=== PATIENT | female | born 1970 | race Caucasian/White ===

== ENCOUNTER 2017-10-16 06:30 | Emergency (ER) | payer OTHER, MEDICARE ==
[~2017-10-16] VITALS: Ht 172.7 cm; Wt 70.0 kg
[~2017-10-16 06:30] MED LIST: BACL20TA PO; CITA10TA8 PO; DIAZ10TA PO; FAMO-79 PO; FLUD0.1T PO; GABA300C10 PO; HYDR-3307 PO; LEVO25TA2 PO; MAGN400T26 PO; MODA200T27 PO; OXYC-302 PO; OXYC1TAB7 PO; PARO40TA61 PO; PRED20TA PO; QUET50TA8 PO; RISP1TAB45 PO; SERT100T5 PO
[2017-10-16] MEDS ORDERED: ACETAMINOPHEN 500 MG TABLET ONE (06:55)
[2017-10-16] MEDS ORDERED: KETOROLAC 30 MG/1 ML ONE (06:55)
[2017-10-16] MEDS ORDERED: KETOROLAC 60 MG/2 ML IVPush ONE (07:00)
[2017-10-16] MEDS ORDERED: SODIUM CHLORIDE 0.9% 1,000ML IVBOLUS ONE ×2 (07:00→08:30)
[2017-10-16] MEDS ORDERED: ACETAMINOPHEN 500 MG TABLET PO ONE (07:00)
[2017-10-16] MEDS ORDERED: ONDANSETRON 2MG/ML, 2ML ONE (07:09)
[2017-10-16 07:11] LABS: BASOPHILS # (AUTO) 0.02 x10^3/uL (0-0.1); BASOPHILS % (AUTO) 0 % (0-1); EOSINOPHILS # (AUTO) 0.05 x10^3/uL (0-0.4); EOSINOPHILS % (AUTO) 0 % (1-7); LYMPHOCYTES % (AUTO) 3 % (22-44); MD NO; MEAN CORPUSCULAR HEMOGLOBIN 31.3 pg (27.0-34.8); MEAN CORPUSCULAR HGB CONC 33.2 g/dL (32.4-35.8); MEAN CORPUSCULAR VOLUME 94.4 fL (80-100); MEAN PLATELET VOLUME 9.4 fL (7.4-10.4); MONOCYTES # (AUTO) 0.45 x10^3/uL (0.2-0.8); MONOCYTES % (AUTO) 4 % (2-9); NEUTROPHILS # (AUTO) 11.32 x10^3/uL (1.8-6.8); NEUTROPHILS % (AUTO) 93 % (42-75); PLATELET COUNT 203 x10^3/uL (130-400); RED BLOOD COUNT 4.82 x10^6/uL (3.82-5.3); RED CELL DISTRIBUTION WIDTH 13.5 % (9.6-15.2)
[2017-10-16 07:23] LABS: ALANINE AMINOTRANSFERASE 24 U/L (12-78); ANION GAP 9 mmol/L (5-15); CALCIUM 8.6 mg/dL (8.5-10.1); CHLORIDE 106 mmol/L (98-107)
[2017-10-16 07:26] LABS: INTERNATIONAL NORMALIZED RATIO 0.98 (0.93-1.1); PROTHROMBIN TIME 10.2 Seconds (9.6-11.5)
[2017-10-16 07:31] LABS: MICROSCOPIC AUTO
[2017-10-16 07:33] LABS: ALKALINE PHOSPHATASE 93 U/L (45-117); BILIRUBIN,TOTAL 0.6 mg/dL (0.2-1.0); CREATININE 0.99 mg/dL (0.55-1.02); FREE T4 (FREE THYROXINE) 0.87 ng/dL (0.76-1.46); TOTAL PROTEIN 8.2 g/dL (6.4-8.2)
[2017-10-16] MEDS ORDERED: DIPHENHYDRAMINE 50 MG/ML, 1ML ONE (07:59)
[2017-10-16] MEDS ORDERED: ONDANSETRON 2MG/ML, 2ML IVPush ONE (08:00)
[2017-10-16] MEDS ORDERED: DIPHENHYDRAMINE 50 MG/ML, 1ML IVPush ONE (08:00)
[2017-10-16 08:04] LABS: CULTURE INDICATED? YES
[2017-10-16] MEDS ORDERED: METOCLOPRAMIDE 5 MG/ML, 2ML IVPush ONE (08:30)
[2017-10-16] MEDS ORDERED: CIPROFLOXACIN/PMX 400MG/200ML 200 ML IV ONE (08:30)
[2017-10-16] MEDS ORDERED: METOCLOPRAMIDE 5 MG/ML, 2ML ONE (08:38)
[2017-10-16] MEDS ORDERED: CIPROFLOXACIN/PMX 400MG/200ML 200 ML ONE (08:39)
[2017-10-16 09:50] VITALS: BP 86/47
== END 2017-10-16 10:08 | disposition home or self-care (01) ==
LOC: ED 08:50
DX: N10 Acute pyelonephritis (principal); Z90.49 Acquired absence of other specified parts of digestive tract; Z95.0 Presence of cardiac pacemaker
CPT/HCPCS: 36415; 71045; 80053; 81001; 83605; 84145; 84439; 84443; 85025; 85610; 87040; 87077; 87086; 87186; 93005; 96365; 96375; 99285; J0744; J1200; J1885; J2405; J2765; J7030

== ENCOUNTER 2017-10-18 07:59 | Emergency (ER) | payer OTHER, MEDICARE ==
[~2017-10-18] VITALS: Ht 172.7 cm; Wt 67.5 kg
[2017-10-18] MEDS ORDERED: FENTANYL PF 100 MCG/2ML ONE ×2 (08:41→09:31)
[2017-10-18 08:52] LABS: MICROSCOPIC NOT IND
[2017-10-18 08:56] LABS: CULTURE INDICATED? NO
[2017-10-18 08:58] LABS: BASOPHILS # (AUTO) 0.02 x10^3/uL (0-0.1); BASOPHILS % (AUTO) 0 % (0-1); EOSINOPHILS # (AUTO) 0.14 x10^3/uL (0-0.4); EOSINOPHILS % (AUTO) 1 % (1-7); LYMPHOCYTES # (AUTO) 1.02 x10^3/uL (1-3.4); LYMPHOCYTES % (AUTO) 10 % (22-44); MD NO; MEAN CORPUSCULAR HEMOGLOBIN 31.4 pg (27.0-34.8); MEAN CORPUSCULAR HGB CONC 33.3 g/dL (32.4-35.8); MEAN CORPUSCULAR VOLUME 94.3 fL (80-100); MEAN PLATELET VOLUME 9.1 fL (7.4-10.4); MONOCYTES # (AUTO) 1.11 x10^3/uL (0.2-0.8); MONOCYTES % (AUTO) 11 % (2-9); NEUTROPHILS # (AUTO) 7.92 x10^3/uL (1.8-6.8); NEUTROPHILS % (AUTO) 78 % (42-75); PLATELET COUNT 189 x10^3/uL (130-400); RED BLOOD COUNT 4.34 x10^6/uL (3.82-5.3); RED CELL DISTRIBUTION WIDTH 13.4 % (9.6-15.2)
[2017-10-18] MEDS ORDERED: FENTANYL PF 100 MCG/2ML IVPush PRN ×2 (09:00→10:00)
[2017-10-18 09:09] LABS: ALANINE AMINOTRANSFERASE 18 U/L (12-78); ALBUMIN 3.4 g/dL (3.4-5.0); ANION GAP 8 mmol/L (5-15); CALCIUM 9.2 mg/dL (8.5-10.1); CHLORIDE 108 mmol/L (98-107)
[2017-10-18 09:12] LABS: ALKALINE PHOSPHATASE 68 U/L (45-117); BILIRUBIN,TOTAL 0.3 mg/dL (0.2-1.0); CREATININE 0.87 mg/dL (0.55-1.02); TOTAL PROTEIN 7.4 g/dL (6.4-8.2)
[2017-10-18 10:26] VITALS: BP 100/74
[2017-10-18] MEDS ORDERED: KETOROLAC 30 MG/1 ML ONE (10:29)
[2017-10-18] MEDS ORDERED: KETOROLAC 30 MG/1 ML IVPush ONE (10:30)
== END 2017-10-18 10:49 | disposition home or self-care (01) ==
LOC: ED 09:41
DX: N12 Tubulo-interstitial nephritis, not specified as acute or chronic (principal); N39.0 Urinary tract infection, site not specified; Z90.89 Acquired absence of other organs; Z90.710 Acquired absence of both cervix and uterus; Z95.0 Presence of cardiac pacemaker
CPT/HCPCS: 36415; 71045; 74176; 80053; 81003; 83605; 85025; 87040; 96374; 96375; 96376; 99285; J1885; J3010

== ENCOUNTER 2019-04-08 12:14 | Emergency (ER) | payer OTHER ==
[~2019-04-08] VITALS: Ht 175.3 cm; Wt 72.4 kg
[~2019-04-08 12:14] MED LIST changes: +FLUC150T2 PO; -HYDR-3307 PO; +HYDR-36 PO; +LEVO750T6 PO; -QUET50TA8 PO; +QUET50TA9 PO; +SERT100T32 PO; -SERT100T5 PO
[2019-04-08] MEDS ORDERED: LEVO50TA5 PO (12:43)
[2019-04-08] MEDS ORDERED: ALBU90AE INH (12:43)
--- NOTE | 2019-04-08 12:43 | NUR ---
PT CAME IN [place] LEFT BREAST ENLARGEMENT AND THAT SHE NOTICED "2 LUMPS" IN BREAST. FIRST NOTICED THIS ABOUT 3 MONTHS AGO. BUT YESTERDAY THE BREAST GOT REALLY LARGE AND TENDER.
[2019-04-08 12:46] VITALS: BP 123/89
== END 2019-04-08 13:18 | disposition home or self-care (01) ==
LOC: ED 13:00
DX: N64.4 Mastodynia (principal); F17.200 Nicotine dependence, unspecified, uncomplicated; Z95.0 Presence of cardiac pacemaker; Z90.89 Acquired absence of other organs; Z90.710 Acquired absence of both cervix and uterus
CPT/HCPCS: 99281

== ENCOUNTER 2019-05-08 10:00 | Observation (INO) | payer OTHER, MEDICARE ==
[~2019-05-08] VITALS: Ht 175.3 cm; Wt 71.5 kg
[~2019-05-08 10:00] MED LIST changes: +ALBU90AE INH; +LEVO50TA5 PO
--- NOTE | 2019-05-08 10:16 | NUR ---
PT ARRIVED BY EMS WITH C/O OF NECK, PAIN AND LEFT ARM PAIN. PT REPORTS THAT SHE ORGINALLY THOUGHT IT WAS AN EAR INFECTION TO THE LEFT EAR D/T PAIN IN LEFT EAR. PT REPORTS CHRONIC LEFT EAR INFECTION. PT REPORTS OF RELIEF OF PAIN WITH ADMINISTRATION OF NITRO. PT CHANGED INTO HOSPITAL GOWN, CONNECTED TO ALL MONITORS. BED RAILS UP AND CALL LIGHT WITHIN REACH.
[2019-05-08] MEDS ORDERED: NALT1TAB PO (10:25)
--- NOTE | 2019-05-08 10:46 | NUR ---
PROVIDER AT BEDSIDE.
--- NOTE | 2019-05-08 11:35 | NUR ---
pt c/o sudden return of left arm and neck pain. Discussed with MD and order obtained to repeat EKG
[2019-05-08 11:52] LABS: ANION GAP 8 mmol/L (5-15); CALCIUM 9.1 mg/dL (8.5-10.1); CHLORIDE 111 mmol/L (98-107); CREATININE 0.85 mg/dL (0.55-1.02)
[2019-05-08] MEDS ORDERED: KETOROLAC 30 MG/1 ML ONE (11:52)
[2019-05-08 11:56] LABS: TROPONIN I < 0.015 ng/mL (0.000-0.045)
[2019-05-08] MEDS ORDERED: KETOROLAC 30 MG/1 ML IVPush ONE (12:00)
[2019-05-08 12:07] LABS: BASOPHILS # (AUTO) 0.06 x10^3/uL (0-0.1); BASOPHILS % (AUTO) 1 % (0-1); EOSINOPHILS # (AUTO) 0.21 x10^3/uL (0-0.4); EOSINOPHILS % (AUTO) 4 % (1-7); LYMPHOCYTES # (AUTO) 1.49 x10^3/uL (1-3.4); LYMPHOCYTES % (AUTO) 26 % (22-44); MD NO; MEAN CORPUSCULAR HEMOGLOBIN 31.1 pg (27.0-34.8); MEAN CORPUSCULAR HGB CONC 33.1 g/dL (32.4-35.8); MEAN CORPUSCULAR VOLUME 94.1 fL (80-100); MEAN PLATELET VOLUME 10.2 fL (7.4-10.4); MONOCYTES # (AUTO) 0.52 x10^3/uL (0.2-0.8); MONOCYTES % (AUTO) 9 % (2-9); NEUTROPHILS # (AUTO) 3.52 x10^3/uL (1.8-6.8); NEUTROPHILS % (AUTO) 61 % (42-75); PLATELET COUNT 176 x10^3/uL (130-400); RED BLOOD COUNT 4.89 x10^6/uL (3.82-5.3); RED CELL DISTRIBUTION WIDTH 13.4 % (9.6-15.2)
--- NOTE | 2019-05-08 12:15 | NUR ---
Pricilla trujillo in EDM - 05/08/19 at 1217 by EYAD Patient/Caregiver given discharge instructions and they have confirmed that they understand the instructions. Patient ambulatory with steady gait. pt verbalized that she will fill her perscripition as ordered.
[2019-05-08] MEDS ORDERED: NITROGLYCERIN SINGLE TAB 0.4 MG SL ONE ×2 (12:38→13:00)
--- NOTE | 2019-05-08 12:41 | NUR ---
MD AT BEDSIDE. PT CONTINUES TO HAVE PAIN, INCREASED FROM BEFORE DESPITE TORADOL. ORDER OBTAINED TO GIVE NITRO SL X1.
[2019-05-08] MEDS ORDERED: NITROGLYCERIN 0.4 MG BOTTLE (25 TABS) SL ONE (13:00)
[2019-05-08] MEDS ORDERED: NITROGLYCERIN OINT 2%, 1GM TP ONE ×2 (13:44→14:00)
--- NOTE | 2019-05-08 14:04 | NUR ---
Admitting MD at bedside.
[2019-05-08] MEDS ORDERED: NITROGLYCERIN SINGLE TAB 0.4 MG SL PRN (14:30)
[2019-05-08] MEDS ORDERED: morphine SULFATE 10 MG/ML, 1ML IVPush PRN (14:30)
--- NOTE | 2019-05-08 15:35 | NUR ---
Pt resting comfortably, slight JEROME but otherwise pain free. Pt hungry/thirsty, orders checked & meal tray ordered. NSR, VSS, tele hold for now, pt updated & aware of POC.
--- NOTE | 2019-05-08 15:52 | NUR ---
Report given to MELANIE Valle. Pt getting ECHO at this time & room still needs to be cleaned.
[2019-05-08] MEDS ORDERED: ACETAMINOPHEN 325 MG TABLET ONE (16:13)
[2019-05-08] MEDS: ACETAMINOPHEN 325 MG TABLET PO PRN ×2 (16:18→21:35)
--- NOTE | 2019-05-08 16:19 | NUR ---
Medicated as per emar for JEROME w/ tylenol. Waiting on clean tele bed then pt to be transported.
--- NOTE | 2019-05-08 16:52 | NUR ---
Meal tray delivered.
[2019-05-08 17:24] LABS: TROPONIN I < 0.015 ng/mL (0.000-0.045)
--- NOTE | 2019-05-08 17:45 | NUR ---
Delay in transport to floor due to lack of staffing. Pt now to tele via [employer] on monitor
[2019-05-08 18:07] VITALS: BP 122/78
[2019-05-08 18:13] VITALS: BP 122/78
[2019-05-08] MEDS: DIAZEPAM 5 MG TABLET PO SCH ×2 (18:35→21:00)
[2019-05-08] MEDS: BACLOFEN 10 MG TABLET PO SCH (18:36)
[2019-05-08] MEDS: ENOXAPARIN 40 MG/0.4 ML SQ SCH (18:36)
[2019-05-08 20:38] VITALS: BP 116/81
[2019-05-08] MEDS ORDERED: NITROGLYCERIN 0.4 MG/SPRAY SL PRN (21:30)
[2019-05-08] MEDS: NITROGLYCERIN 0.4 MG BOTTLE (25 TABS) SL PRN (21:48)
[2019-05-08 21:58] VITALS: BP 113/78
[2019-05-08 23:47] LABS: TROPONIN I < 0.015 ng/mL (0.000-0.045)
[2019-05-09] MEDS: BACLOFEN 10 MG TABLET PO SCH ×5 (00:05→21:18)
[2019-05-09 01:50] VITALS: BP 103/70
[2019-05-09 05:15] LABS: BASOPHILS # (AUTO) 0.07 x10^3/uL (0-0.1); BASOPHILS % (AUTO) 1 % (0-1); EOSINOPHILS # (AUTO) 0.54 x10^3/uL (0-0.4); EOSINOPHILS % (AUTO) 11 % (1-7); LYMPHOCYTES # (AUTO) 1.71 x10^3/uL (1-3.4); LYMPHOCYTES % (AUTO) 34 % (22-44); MD NO; MEAN CORPUSCULAR HEMOGLOBIN 31.3 pg (27.0-34.8); MEAN CORPUSCULAR HGB CONC 33.2 g/dL (32.4-35.8); MEAN CORPUSCULAR VOLUME 94.3 fL (80-100); MEAN PLATELET VOLUME 10.4 fL (7.4-10.4); MONOCYTES # (AUTO) 0.54 x10^3/uL (0.2-0.8); MONOCYTES % (AUTO) 11 % (2-9); NEUTROPHILS # (AUTO) 2.17 x10^3/uL (1.8-6.8); NEUTROPHILS % (AUTO) 43 % (42-75); PLATELET COUNT 164 x10^3/uL (130-400); RED BLOOD COUNT 4.49 x10^6/uL (3.82-5.3); RED CELL DISTRIBUTION WIDTH 13.4 % (9.6-15.2)
[2019-05-09 05:28] LABS: CHLORIDE 108 mmol/L (98-107)
[2019-05-09 05:35] LABS: ANION GAP 6 mmol/L (5-15); CALCIUM 9.1 mg/dL (8.5-10.1); CHOL/HDL RATIO 1.9; CHOLESTEROL, TOTAL 142 mg/dL (140-239); CREATININE 0.91 mg/dL (0.55-1.02); HDL CHOL % 53 % (28-40); HDL CHOLESTEROL (DIRECT) 75 mg/dL (40-60); LDL CHOLESTEROL,CALCULATED 49 mg/dL (54-169); LDL/HDL RATIO 0.7 (0.5-3.0); TRIGLYCERIDES 88 mg/dL (50-200); VLDL CHOLESTEROL 18 mg/dL (0-25)
[2019-05-09 08:12] VITALS: BP 119/83
[2019-05-09] MEDS: DIAZEPAM 5 MG TABLET PO SCH ×3 (08:15→21:17)
[2019-05-09] MEDS: LEVOTHYROXINE 50 MCG TABLET PO SCH (08:15)
[2019-05-09] MEDS: NITROGLYCERIN 0.4 MG BOTTLE (25 TABS) SL PRN (10:01)
[2019-05-09 10:03] VITALS: BP 126/79
[2019-05-09] MEDS ORDERED: VERAPAMIL 2.5 MG/ML, 2ML ONE (10:04)
[2019-05-09] MEDS ORDERED: MIDAZOLAM 1 MG/ML, 5ML ONE (10:04)
[2019-05-09] MEDS ORDERED: FENTANYL PF 250 MCG/5ML ONE (10:04)
[2019-05-09] MEDS ORDERED: HEPARIN 1,000 UNITS/ML, 10ML ONE (10:05)
[2019-05-09] MEDS ORDERED: BIVALIRUDIN 250 MG ONE (10:05)
[2019-05-09] MEDS ORDERED: LIDOCAINE 1%, 20ML ONE (10:05)
[2019-05-09 10:16] LABS: TROPONIN I < 0.015 ng/mL (0.000-0.045)
[2019-05-09] MEDS ORDERED: ASPIRIN 325 MG TABLET PO ONE (10:30)
[2019-05-09] MEDS ORDERED: DIPHENHYDRAMINE 50 MG/ML, 1ML ONE (10:37)
[2019-05-09] MEDS: SODIUM CHLORIDE 0.9% 1,000 ML IV SCH ×3 (11:12→23:13)
[2019-05-09] MEDS ORDERED: ISOSORBIDE MONONITRATE ER 30 MG TABLET ONE (11:15)
[2019-05-09] MEDS: ISOSORBIDE MONONITRATE ER 30 MG TABLET PO SCH (11:22)
[2019-05-09] MEDS ORDERED: ISOSORBIDE MONONITRATE ER 30 MG TABLET PO SCH (11:30)
[2019-05-09 14:15] VITALS: BP 101/67
[2019-05-09] MEDS: ACETAMINOPHEN 325 MG TABLET PO PRN (15:20)
[2019-05-09] MEDS ORDERED: SUMATRIPTAN 50 MG TABLET PO PRN (16:20)
[2019-05-09] MEDS: ENOXAPARIN 40 MG/0.4 ML SQ SCH (18:38)
[2019-05-09] MEDS ORDERED: ATORVASTATIN 40 MG TABLET PO SCH (21:00)
[2019-05-09 21:47] VITALS: BP 129/84
[2019-05-10 03:26] VITALS: BP 106/77
[2019-05-10] MEDS: SODIUM CHLORIDE 0.9% 1,000 ML IV SCH (05:57)
[2019-05-10] MEDS: BACLOFEN 10 MG TABLET PO SCH ×2 (05:57→11:00)
[2019-05-10 07:23] VITALS: BP 117/66
[2019-05-10] MEDS: DIAZEPAM 5 MG TABLET PO SCH (08:12)
[2019-05-10] MEDS: ISOSORBIDE MONONITRATE ER 30 MG TABLET PO SCH (08:13)
[2019-05-10] MEDS: LEVOTHYROXINE 50 MCG TABLET PO SCH (08:13)
[2019-05-10] MEDS ORDERED: ISOS30TA8 PO (09:20)
[2019-05-10] MEDS ORDERED: NITR0.4T41 SL (09:20)
[2019-05-10] MEDS ORDERED: BUTA1CAP30 PO (09:20)
[2019-05-10] MEDS ORDERED: METO25TA91 PO (09:20)
[2019-05-10] MEDS ORDERED: BUTALB/APAP/CAFFEINE 50MG/325MG/40MG PO PRN (10:00)
[2019-05-10] MEDS ORDERED: METOPROLOL SUCCINATE 25 MG TAB.ER.24H PO SCH (18:00)
== END 2019-05-10 11:12 | disposition home or self-care (01) ==
LOC: ED 12:58 → EDIP 14:14 → 5SO 17:49 → DCLOUNGE 05-10 10:52
PROVIDERS: ADMIT Internal Medicine Infectious Disease; ATTEND Hospitalist
DX: I20.0 Unstable angina (principal); R07.89 Other chest pain; M54.2 Cervicalgia; G89.29 Other chronic pain; M32.9 Systemic lupus erythematosus, unspecified; E06.3 Autoimmune thyroiditis; G25.82 Stiff-man syndrome; Z95.0 Presence of cardiac pacemaker; E27.1 Primary adrenocortical insufficiency; D69.3 Immune thrombocytopenic purpura; F17.210 Nicotine dependence, cigarettes, uncomplicated; I49.5 Sick sinus syndrome; Z90.710 Acquired absence of both cervix and uterus
CPT/HCPCS: 36415; 71045; 80048; 80061; 82040; 84484; 85025; 93005; 93017; 93306; 93458; 96372; 96374; 96375; 99156; 99284; C1769; C1894; G0378; J1200; J1644; J1650; J1885; J2250; J2270; J3010; J3490; Q9967; J0583